=== PATIENT | female | born 2000 | race Two or more races ===

== ENCOUNTER → 2022-03-30 09:39 | Outpatient (BNVA) | payer MEDICARE, MEDICAID, SELFPAY | PROVIDERS: PCP Internal Medicine; Visit Provider Internal Medicine Rheumatology | DX: Q61.3 Polycystic kidney, unspecified (principal); M25.571 Pain in right ankle and joints of right foot; M25.572 Pain in left ankle and joints of left foot; M12.00 Chronic postrheumatic arthropathy [Jaccoud], unspecified site; Z87.39 Personal history of other diseases of the musculoskeletal system and connective tissue | CPT/HCPCS: 99202 ==

== ENCOUNTER 2025-02-03 08:09 | Outpatient (AMB) | payer MEDICARE, SELFPAY ==
--- OUTSIDE RECORDS SUMMARY | 2023-11-29 07:41 | XMS_ITS | Encounter Summary ---
Author Organization [facility] [place] [address] Care Team Providers Care Advertising Display Rotator Name Role Phone Lillian Johnson MD Primary Care Provider [phone] Encounter Details Date Type Department Care Team (Latest Contact Info) Description 11/29/2023 8:41 AM EDT Hospital Encounter TH HISTORIC ENCOUNTERS EASTERN CONVERSION ONLY [facility]i Pa, [facility] [address] [place] [address] Diaphragmatic hernia without obstruction or gangrene Social History Tobacco Use Types Packs/Day Years Used Date Smoking Tobacco: Never Smokeless Tobacco: Never Alcohol Use Standard Drinks/Week Comments Yes 0 (1 standard drink = 0.6 oz pur e alcohol) holiday only Housing Instability Answer Date Recorde d Are you worried that in the next 2 months you may not have stable housing? No 01/16/2025 Food Access & Nutrition Answer Date Rec orded Do you have access to a vari ety of food including fruits and vegetables? Yes 01/16/2025 Access to Healthcare Answer Date Record ed Within the last 3 months, ho w many times did you visit the emergency department for your medical care? 0 01/16/2025 Health Literacy Answer Date Recorded How often do you need to hav e someone help you when you read instructions, pamphlets, or other written material from your doctor or pharmacy? Never 01/16/2025 Caregiver: How often do you need to have someone help you when you read instructions, pamphlets, or other written material from your doctor or pharmacy? Not on file 01/16/2025 Financial Risk Answer Date Recorded How hard is it for you to pa y for the very basics like food, housing, medical care, and air conditioning / heating? Somewhat hard 01/16/2025 Transportation Answer Date Recorded Has the lack of transportati on kept you from meetings, work, or from getting things needed for daily living? Yes Has the lack of transportati on kept you from medical appointments or from getting medications? Yes 01/16/2025 Social Isolation Answer Date Recorded How often do you feel lonely or isolated from th ose around you? Always 01/16/2025 Food Risk Answer Date Recorded Within the past 12 months we worried whether our food would run out before we got money to buy more. Never true 01/16/2025 Within the past 12 months th e food we bought just didn't last and we didn't have money to get more. Never true 01/16/2025 Dependent Care Answer Date Recorded Do you need help finding or paying for care for your loved ones. For example, childcare center administrator or elderly care for an older adult? No 01/16/2025 Education Answer Date Recorded Do you think completing more education or training, like finishing a GED, going to college, or learning a trade, would be helpful for you? Yes 01/16/2025 Employment and Income Answer Date Recor ded During the last four weeks, have you been actively looking for work? No 01/16/2025 Living Situation Answer Date Recorded What is your living situation? Unrecognized valu e 01/16/2025 Education Answer Date Recorded What is the highest level of school you have completed or the highest degree you have received? 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 Not on file Not on file documented as of this encounter Plan of Treatment Upcoming Encounters Date Type Department Care Team (Late st Contact Info) Description 03/24/2025 3:00 PM EST Office Visit Adult Medicine [address] [phone] Graciela Caba PA [address], [place] 01/21/2026 3:00 PM EST Office Visit Adult Medicine [facility] [address], [place] [phone] Lillian Johnson MD [address], [place] documented as of this encounter Procedures Procedure Name Priority Date/Time Associated Diagnosis Comments CR UGI W AIR ROUTINE Routine 11/29/2023 11:10 AM EDT Diaphragmatic hernia without obstruction or gangrene documented in this encounter Results * CR UGI W AIR ROUTINE (11/29/2023 11:10 AM EDT) Anatomical Region Laterality Modality Radiographic Yesenia ging 11/29/2023 8:49 AM EDT Narrative 11/29/2023 11:10 AM EDT [facility] Diagnostic Imaging Department [address] [place] [address] [id number] Patient: ODILIA GILMORE T /Age/Sex: 2000 - 23 - F Unit#: [id number] Location/Status: SPDIGEN/REG CLI Mnemonic/Ordering Site: [facility] Ordering Physician: BRII PA APRN CR UGI W Air Routine - 11/29/23 - 0916 Report Status:Signed FINDINGS: Double contrast UGI performed. COMPARISON: CT abdomen and pelvis July 19, 2023 and March 19, 2020; barium swallow March 02, 2020 HISTORY: Patient is a 23-year-old female with history of GERD, generalized abdominal pain. Worse with lying flat. MANAGER SHOP radiographs: Shrimping Boat Captain AP radiograph of the abdomen obtained. Bowel gas pattern is nonobstructive. Visualized lung bases appear clear. There is moderate dextroscoliosis of the thoracolumbar spine, as seen on prior imaging. FINDINGS: Effervescent crystals were administered orally. Thick and thin barium was then administered orally under fluoroscopic control. Esophagus: Normal distensibility, motility and mucosal pattern. There is no evidence of obstruction. There is a small, sliding, axial hiatal hernia. Stomach: Normal distensibility and motility. Prompt passage of contrast from the stomach into the duodenal bulb and sweep. No gastric mass or ulceration. Visualization of proximal small bowel is within normal limits. Gastroesophageal reflux: There is a large amount of gastroesophageal reflux visualized to the level of the clavicles. DAP: 1966.0 uGym^2 Exam performed and dictated by: Marlen Wilburn PA-C Supervising physician: Cameron Travis MD IMPRESSION: Small, sliding, axial hiatal hernia with large amount of gastroesophageal reflux visualized. Otherwise normal double contrast upper GI exam. Dictating Physician: CAMERON TRAVIS MD Electronically Signed by: CAMERON TRAVIS MD Dic Date/Time: 11/29/23 1041 Sign date/Time: 11/29/23 1110 Procedure Note Cameron Travis MD - 12/12/2023 [facility] Diagnostic Imaging Department [address] [place] [id number] Patient: ODILIA GILMORE T /Age/Sex: 2000 - 23 - F Unit#: [id number] Location/Status: SPDIGEN/REG CLI Mnemonic/Ordering Site: [facility] Ordering Physician: BRII PA CONDENSER OPERATOR CR UGI W Air Routine - 11/29/23 - 0916 Report Status:Signed FINDINGS: Double contrast UGI performed. COMPARISON: CT abdomen and pelvis July 19, 2023 and March 19, 2020;barium swallow March 02, 2020 HISTORY: Patient is a 23-year-old female with history of GERD,generalized abdominal pain. Worse with lying flat. MANAGER SHOP radiographs: Shrimping Boat Captain AP radiograph of the abdomen obtained. Bowelgas pattern is nonobstructive. Visualized lung bases appear clear. There ismoderate dextroscoliosis of the thoracolumbar spine, as seen on prior imaging. FINDINGS: Effervescent crystals were administered orally. Thick and thinbarium was then administered orally under fluoroscopic control. Esophagus: Normal distensibility, motility and mucosal pattern. There isno evidence of obstruction. There is a small, sliding, axial hiatal hernia. Stomach: Normal distensibility and motility. Prompt passage of contrastfrom the stomach into the duodenal bulb and sweep. No gastric mass orulceration. Visualization of proximal small bowel is within normal limits. Gastroesophageal reflux: There is a large amount of gastroesophagealreflux visualized to the level of the clavicles. DAP: 1966.0 uGym^2 Exam performed and dictated by: Marlen Wilburn PA-C Supervising physician: Cameron Travis MD IMPRESSION: Small, sliding, axial hiatal hernia with large amount ofgastroesophageal reflux visualized. Otherwise normal double contrast upper GI exam. Dictating Physician: CAMERNO TRAVIS MD Electronically Signed by: CAMERON TRAVIS MD Dic Date/Time: 11/29/23 1041 Sign date/Time: 11/29/23 1110 us [facility]i Pa [facility] IMG XR PROCEDURES Final Result documented in this encounter Visit Diagnoses Diagnosis Diaphragmatic hernia without obstruction or gangrene Diaphragmatic hernia without mention of obstruction or gangrene documented in this encounter Care Teams Advertising Display Rotator Relationship Specialty Start Date End Date Lillian Johnson MD [address] [place] [address] PCP - General Internal Medicine 01/05/21 documented as of this encounter
--- OUTSIDE RECORDS SUMMARY | 2025-02-02 10:37 | XMS_ITS | Encounter Summary ---
Author Organization [facility] Address [address] [place] [address] Care Team Providers Care Machine Sorter Name Role Phone Lillian Johnson MD Primary Care Provider [phone] Reason for Visit * Reason Comments Knee Pain Past 3 weeks. Went t o UC said she has tendonitis. Pain has worsened. Now has bump to left leg above calf. Encounter Details Date Type Department Care Team (Late st Contact Info) Description 02/02/2025 10:37 AM EST - 02/02/2025 1:09 PM EST Emergency [facility] Emergency [address] [place] [address] Acute pain of right knee (Primary Dx); Swelling Discharge Disposition: Home or Self Care Social History Tobacco Use Types Packs/Day Years [...] do you feel lonely or isolated from ose around you? Always 01/16/2025 Food Risk [...] care for your loved ones. For example, child day care teacher or elderly care for an older adult? [...] Start Date Job End Date Par[employer]fess[employer] in [place] [employer] Not on f ile Not on file Not on file documented as of this encounter Last Filed Vital Signs Vital Sign Reading Time Taken Comments Blood Pressure 143/95 02/02/2025 10:32 AM EST Pulse 72 02/02/2025 10:32 AM EST Temperature 36.8 C (98.2 F) 02/02/2025 10:32 AM EST Respiratory Rate 18 02/02/2025 10:32 AM EST Oxygen Saturation 98% 02/02/2025 10:32 AM EST Inhaled Oxygen Concentration - - Weight 147 kg (323 lb) 02/02/2025 10:32 AM EST Height 167.6 cm (5' 6 ) 02/02/2025 10:32 AM EST Body Mass Index 52.13 02/02/2025 10:32 AM EST documented in this encounter Functional Status * Calculated C-SSRS Risk Score (Lifetime/Recent) Answer Date of Assessment Author No Risk Indicated 02/02/2025 10:32 AM EST Jojo King RN * [place] Suicide Severity Rating Scale (Screener/Recent Self-Report) Question Answer Date of Assessment Author 1. Wish to be (Past 1 Month) No 025 10:32 AM EST Jojo King RN 2. Non-Specific Active Suici lincoln Thoughts (Past 1 Month) No 02/02/2025 10:32 AM EST Bruna King RN 6. Suicidal Behavior (Lifetime) No 10:32 AM EST Jojo King RN documented as of this encounter Discharge Instructions * Discharge Instructions* KEIRY Weber - 02/02/2025 12:51 PM EST You were seen today for bilateral knee pain. Performed today did not reveal any evidence of an acute fracture or dislocation. DVT study evaluating for a clot was also negative. There were no signs ofinfection on exam. Your pain is most likely secondary to an underlying tendinitis. As we discussed you can use warm or cold compresses for additional relief. Continue to take Tylenol 650 mg every 8 hours as needed for pain. You also been prescribed lidocaine patches which you can apply to the affected area. I have given your information to Ortho and they will follow-up with you on a nonemergent follow-up. Follow-up with your PCP as needed. As we discussed if you have any signs of infection such as warmth to touch, overlying redness, fevers or chills, unable to move the joint increased swelling or pain please return to the ED. Thank you for choosing us for your care * Attachments The following attachments cannot be sent through Care Everywhere. * Knee Pain or Injury (Belarusian) documented in this encounter Medications at Time of Discharge acetaminophen (TYLENOL) 500 mg tablet Take 2 tablets (1,000 mg total) by mouth every 6 (six) hours if needed for mild pain for up to 10 days. 30 tablet 02/02/2025 5 albuterol HFA (PROAIR HFA ; PROVENTIL HFA ; VENTOLIN HFA) 90 mcg/actuation inhaler Inhale 2 puffs by mouth every 6 (six) hours if needed for wheezing or shortness of breath. 6.7 g 05/15/2024 cholecalciferol (VITAMIN D-3) 50 mcg (2,000 unit) tablet Take 1 Tablet by mouth daily. 10/21/2022 ferrous sulfate 325 mg (65 mg elemental iron) tablet Take 1 Tablet by mouth daily. 06/23/2023 fluticasone propionate (FLONASE) 50 mcg/actuation nasal spray Administer 2 sprays into each nostril 1 (one) time each day. 16 g 07/17/2024 hydrOXYzine HCL (ATARAX) 10 mg tablet Take 1 tablet (10 mg total) by mouth every 8 (eight) hours if needed for anxiety. 30 tablet 03/11/2024 levocetirizine (Xyzal) 5 mg tablet Take 1 tablet (5 mg total) by mouth 1 (one) time each day in the evening. 30 each 2 07/17/2024 lidocaine 4 % patch Apply 1 patch topically 1 (one) time each day for 5 days. 5 each 02/02/2025 5 omeprazole (PriLOSEC) [address] capsule Take 1 capsule (20 mg total) by mouth 1 (one) time each day. Do not crush or chew. 90 capsule 1 09/16/2024 traZODone (DESYREL) 50 mg tablet Take 1 tablet (50 mg total) by mouth at bedtime. at bedtime. 90 tablet 1 09/16/2024 documented as of this encounter Ordered Prescriptions Prescription Sig Dispense Quantity Refills Last Filled Start Date End Date acetaminophen (TYLENOL) 500 mg tablet Take 2 tablets (1,000 mg total) by mouth every 6 (six) hours if needed for mild pain for up to 10 days. 30 tablet 02/02/2025 5 lidocaine 4 % patch Apply 1 patch topically 1 (one) time each day for 5 days. 5 each 02/02/2025 5 documented in this encounter Discharge Disposition Disposition Code Departure Means Destination Comment s Home or Self Care documented in this encounter Progress Notes * Jojo King RN - 02/02/2025 10:26 AM EST Pt C/O right knee pain x 2-3 weeks, left leg swelling x 1 week. Pt states she was seen at last week and was dx with tendonitis and bursitis. Pt reports new onset right calf and foot swelling. Pt denies falls, injury/trauma. + CMS both lower extremities. Pt denies hx of DVT, stopped taking control pills 1 month ago * Arik Lorenz MD - 02/02/2025 10:26 AM EST Images from the original note were not included. [facility] EMERGENCY EMERGENCY DEPARTMENT ENCOUNTER CHIEF COMPLAINT Chief Complaint Patient presents with Knee Pain Past 3 weeks. Went to said she has tendonitis. Pain has worsened. Now has bump to left leg abovecalf. HISTORY OF PRESENT ILLNESS Patient is a 24-year-old female with history of elevated BMI, asthma, presenting with bilateral knee pain. Patient is been having pain of the right knee for the last 3 weeks and sees urgent care lastWednesday was diagnosed with a tendinitis and bursitis and prescribed Tylenol for pain control. Last week patient also began having pain to the left knee with a small mass behind the calf. Her PCP was concerned that she is developing a blood clot and sent her to the ER for further evaluation. Patient denies history of PE, DVT, recent immobilization or surgery, recent trauma. Patient denies chest pain, shortness of breath or palpitations. Patient is on OCP but has not taken it for at least a month. No known drug allergies. History of bilateral knee surgery. FOCUSED PHYSICAL EXAM Vitals: 02/02/25 1032 BP: (!) 143/95 BP Location: Left arm;Upper Patient Position: Sitting Pulse: 72 Resp: 18 Temp: 36.8 ??C (98.2 ??F) TempSrc: Oral SpO2: 98% Weight: 147 kg (323 lb) Height: 1.676 m (66 ) General: awake, alert, NAD Head: atraumatic Neck: supple Respiratory: no respiratory distress Cardiovascular: normal perfusion Extremity: Mild swelling noted to the right lower extremity otherwise, no obvious deformity. This is a limited exam and patient will be reexamined by primary ER provider when patient can be fully assessed. Neurological: no focal neurologic deficits Psychiatric: appropriate, cooperative Patient is able to ambulate with steady gait. DIAGNOSTIC TESTING Based on the patient's history and physical exam the following labs and radiology studies were ordered in order to evaluate, work-up and determine best course of treatment for the patient. The studies were ordered by me and will be interpreted by the provider who completes the patient's course: Labs Reviewed POC , URINE DIAGNOSTIC Vascular US Duplex Lower Extremity Venous Bilateral (Results Pending) XR Knee 3 Views bilat (Results Pending) No results found for this or any previous visit (from the past 4464 hours). Based on the above history and exam the following medications and/or treatments were ordered in order to start initial treatment and stabilization the patient's condition: Medications acetaminophen (TYLENOL) tablet 650 mg (has no administration in time range) The patient is condition and response to care provided will be followed closely and may be transitioned to another provider or continued by me. This is only an initial rapid medical evaluation. Arik Lorenz MD (electronically signed) 10:35 AM EST * KEIRY Weber - 02/02/2025 10:20 AM EST HPI Chief Complaint Patient presents with Knee Pain Past 3 weeks. Went to said she has tendonitis. Pain has worsened. Now has bump to left leg abovecalf. HPI Ms. Gilmore is a pleasant 24 year old female with history of ADPKD with preserved renal function, chronic headaches, adjustment disorder with depressed mood, elevated BMI presenting today for evaluation of bilateral knee pain. Patient states that she has been having right knee pain for the last 3 weeks, she was evaluated in urgent care last Monday and was diagnosed with both tendinitis and bursitis, she was prescribed Tylenol for pain control. She states that she cannot take ibuprofen secondary to autosomal dominant polycystic kidney disease, she follows nephrology for this. Admission just last week patient states that she started having pain to the left knee and noticed asmall mass behind her calf. She contacted her PCP who voiced concern for potential blood clot and urged her to go to the ER for further evaluation. Patient denies any history of pulmonary embolism, DVT, recent immobilization, surgery, recent trauma or injury, prolonged travel, malignancy, hemoptysis. Patient does admit that she was previously taking oral contraceptives, was very intermittent and she has not taken it for the last month. She does have a history of bilateral knee surgery with hardware secondary to angelo disease. No data recorded Patient History Medical History[1] Surgical History[2] Family History[3] Social History Tobacco Use Smoking status: Never Smokeless tobacco: Never Substance Use Topics Alcohol use: Yes Comment: holiday only Drug use: Yes Types: Marijuana/Cannabis Comment: edibles Review of Systems Review of Systems Physical Exam ED Triage Vitals [02/02/25 1032] Temp Heart Rate Resp BP 36.8 ??C (98.2 ??F) 72 18 (!) 143/95 SpO2 Temp Source Heart Rate Source Patient Position 98 % Oral -- Sitting BP Location FiO2 (%) Left arm;Upper -- Physical Exam General Appearance: No acute distress Skin: Dry Eyes: EOMI, no scleral icterus HENT: Normocephalic, atraumatic, moist mucous membranes Neck: Supple, normal range of motion Cardiovascular: Regular rate and rhythm, no murmur, 2+ radial pulses Respiratory: Lungs clear to auscultation bilaterally, no respiratory distress, no wheezing or rhonchi Abdomen: Soft, non-tender, non-distended MSK: - RLE: Tenderness with palpation over the right superior lateral patellar, overlying bony prominence of distal femur. No overlying skin changes. Compartments are soft and compressible, no palpable effusion or fluid. 2+ popliteal pulse. No swelling. Full range of motion nonpainful. There is no distinct swelling. No overlying skin changes such as cellulitis or erythema. No warmth to touch. Range ofmotion is nonpainful. 2+ DP, 1+ TP pulse. No signs of neurovascular compromise. Brisk capillary refill - LLE: Compartments are soft and compressible, no palpable effusion or fluid. 2+ popliteal pulse. Patient has tenderness with palpation of left superior medial calf region. There is a mild swelling, difficult to discern secondary to body habitus. However there are no overlying skin changes such as cellulitis or erythema. No warmth to touch. Range of motion is nonpainful. 2+ DP, 1+ DP pulse. No signs of neurovascular compromise. Brisk capillary refill Neurologic: Awake, alert, no obvious deficits, moving all extremities Psychiatric: Appropriate, cooperative ED Course & MDM ED Course as of 02/02/25 1251 Sun Feb 02, 2025 1139 Vascular US Duplex Lower Extremity Venous Bilateral No deep venous thrombosis of either lower extremity. [SO] 1238 Vascular US Duplex Lower Extremity Venous Bilateral [SO] ED Course User Index [SO] KEIRY Weber Clinical Impressions as of 02/02/25 1251 Swelling Acute pain of right knee Medical Decision Making Ms. Gilmore is a pleasant 24 year old female with history of ADPKD with preserved renal function, chronic headaches, adjustment disorder with depressed mood, elevated BMI presenting today for evaluation of bilateral knee pain. Physical exam she is in no acute distress nontoxic-appearing, independently ambulatory with steady gait. Independent interpretation of vital signs is hemodynamically stable. Medicated with acetaminophen at 1000 mg, held off on ibuprofen as she states that she was urged not to use this by her family counselor. Prior to my initial evaluation patient had bilateral vascular ultrasound for DVT as well as bilateral knee x-ray. Ultrasound negative for DVT bilaterally. Patient did not have any shortness of breath, chest pain, palpitations concerning for PE. There are no signs of acute limb ischemia or neurovascular compromise in the bilateral lower extremities. Consulted Ortho, spoke with Dr. Duron no emergent intervention at this time, patient can be evaluated non emergently in outpatient setting. I suspect her pain is likely secondary to tendinitis. Low clinical suspicion for septic arthritis given no signs of infection, no fevers or chills, no overlying erythema or warmth, no swelling, no difficulty in range of motion, no immunosuppression. Patient treated symptomatically with acetaminophen, instructed not to use ibuprofen secondary to her polycystic kidney disease and recommendations ofnephrology. She was also given lidocaine patches for additional relief. Patient deemed appropriate for discharge with symptomatic treatment, recommendations to follow-up with PCP and ortho with strict return precautions provided. Patient verbalizes understanding and agreement with plan. Procedures KEIRY Weber 02/02/25 1219 KEIRY Weber 02/02/25 1257 KEIRY Weber 02/02/25 1727 [1] Past Medical History: Diagnosis Date Adjustment disorder with depressed mood 2018 Asthma 2018 History of Helicobacter pylori infection 2018 Iron deficiency anemia 03/12/2018 JRA (juvenile rheumatoid arthritis) ([facility] V24, [facility] V28) 03/12/2018 Morbid obesity with BMI of 50.0-59.9, adult ([facility] V24, [facility] V28) 03/12/2018 SONALI (obstructive sleep apnea) 2018 Seasonal allergies 2018 Vitamin D deficiency 2018 [2] Past Surgical History: Procedure Laterality Date ADENOIDECTOMY KNEE SURGERY Bilateral 02/21/2012 : growth plates placed in knees bilateral OTHER SURGICAL HISTORY 07/2023 hysteroscopy w/ D&C, path benign [3] Family History Problem Relation Name Age of Onset Diabetes Mother stroke, HTN, CHF, asthma, SONALI Other (Other: Other) Father polycystic kidney disease w/ kidney failure Ovarian cancer Maternal Grandmother Prostate cancer Maternal Grandfather diabetes Other (unknown cancer) Paternal Grandmother Diabetes Half-Brother x 5 schizophrenia Other (Other: Shot) Half-Brother x 1 36 Other (Other: Mental illness) Half-Sister x 1 KEIRY Weber 02/02/25 1908 Cosigned by Talon Muhammad MD at 02/03/2025 1:01 AM EST documented in this encounter Plan of Treatment Upcoming Encounters Date Type Department Care Team (Late st Contact Info) Description 03/24/2025 3:00 PM EST Office Visit Adult Medicine [facility] [address] [place] [address] Graciela Caba PA [address], [place] 01/21/2026 3:00 PM EST Office Visit Adult [address] [phone] Lillian Johnson MD [address], [place] documented as of this encounter Procedures Procedure Name Priority Date/Time Associated Diagnosis Comments XR KNEE 4+ VIEWS BILAT STAT 02/02/2025 11:55 AM EST VAS US DUPLEX LOWER EXT VENOUS BILAT STAT 02/02/2025 11:31 AM EST Swelling documented in this encounter Results * XR Knee 4+ Views bilat (02/02/2025 11:55 AM EST) Anatomical Region Laterality Modality Lower Extremities, Knee Bilateral Radiogra phic Imaging 02/02/2025 12:1 8 PM EST Impressions 02/02/2025 12:22 PM EST No acute findings. Sideplates and fixation screws along the medial distal left femur and proximal left tibia. Sideplate and fixation screws along the distal lateral right femur and lateral proximal right tibia. The right femoral sideplate is not flush with the adjacent cortex. -------- FINAL REPORT -------- Dictated By: Heath Shen Dictated Date: 02/02/2025 12:18 ET Assigned Physician: Heath Shen Reviewed and Electronically Signed By: Heath Shen Signed Date: 02/02/2025 12:22 ET Workstation ID: [id number] Transcribed By: Self Edit Transcribed Date: 02/02/2025 12:18 ET Narrative 02/02/2025 12:22 PM EST PROCEDURE: Radiographs of both knees. HISTORY: Atraumatic pain. COMPARISON: 01/22/2025. FINDINGS: Multiple views of both knees. Bony mineralization is normal. Left knee: Sideplate and fixation screws along the medial distal femur and medial proximal tibia. No apparent hardware complication. No joint effusion. No fracture. Right knee: Sideplate and fixation screws along the lateral distal femur and lateral proximal tibia. The proximal portion of the femoral sideplate is not flush with the adjacent cortex, with an approximately 4 mm gap. Hardware appears intact. No joint effusion. Procedure Note Heath Shen MD - 02/02/2025 PROCEDURE: Radiographs of both knees. HISTORY: Atraumatic pain. COMPARISON: 01/22/2025. FINDINGS: Multiple views of both knees. Bony mineralization is normal. Left knee: Sideplate and fixation screws along the medial distal femur andmedial proximal tibia. No apparent hardware complication. No jointeffusion. No fracture. Right knee: Sideplate and fixation screws along the lateral distal femurand lateral proximal tibia. The proximal portion of the femoral sideplateis not flush with the adjacent cortex, with an approximately 4 mm gap.Hardware appears intact. No joint effusion. IMPRESSION: No acute findings. Sideplates and fixation screws along the medial distal left femur andproximal left tibia. Sideplate and fixation screws along the distallateral right femur and lateral proximal right tibia. The right femoralsideplate is not flush with the adjacent cortex. -------- FINAL REPORT -------- Dictated By: Heath Shen Dictated Date: 02/02/2025 12:18 ET Assigned Physician: Heath Shen Reviewed and Electronically Signed By: Heath Shen Signed Date: 02/02/2025 12:22 ET Workstation ID: [id number] Transcribed By: Self Edit Transcribed Date: 02/02/2025 12:18 ET us Arik Lorenz MD IMG XR PROCEDURES Final Result * Vascular US Duplex Lower Extremity Venous Bilateral (02/02/2025 11:31 AM EST) Anatomical Region Laterality Modality Vascular, Abdomen Ultrasound 02/02/2025 11:3 3 AM EST Impressions 02/02/2025 11:34 AM EST No deep venous thrombosis of either lower extremity. -------- FINAL REPORT -------- Dictated By: Heath Shen Dictated Date: 02/02/2025 11:33 ET Assigned Physician: Heath Shen Reviewed and Electronically Signed By: Heath Shen Signed Date: 02/02/2025 11:34 ET Workstation ID: [id number] Transcribed By: Self Edit Transcribed Date: 02/02/2025 11:33 ET Narrative 02/02/2025 11:34 AM EST PROCEDURE: Bilateral lower extremity venous duplex ultrasound. HISTORY: edema pain in extremities. COMPARISON: None. TECHNIQUE: Grayscale, color Doppler, and spectral Doppler ultrasound evaluation of the deep venous structures of the lower extremities. Augmentation and compression maneuvers were performed. FINDINGS: The deep venous structures of the lower extremities demonstrate normal compressibility with normal color and spectral Doppler flow and a normal response to augmentation maneuvers. No sonographic abnormality in the posterior upper left calf at site of reported pain. Procedure Note Heath Shen MD - 02/02/2025 PROCEDURE: Bilateral lower extremity venous duplex ultrasound. HISTORY: edema pain in extremities. COMPARISON: None. TECHNIQUE: Grayscale, color Doppler, and spectral Doppler ultrasoundevaluation of the deep venous structures of the lower extremities.Augmentation and compression maneuvers were performed. FINDINGS: The deep venous structures of the lower extremities demonstrate normalcompressibility with normal color and spectral Doppler flow and a normalresponse to augmentation maneuvers. No sonographic abnormality in the posterior upper left calf at site ofreported pain. IMPRESSION: No deep venous thrombosis of either lower extremity. -------- FINAL REPORT -------- Dictated By: Heath Shen Dictated Date: 02/02/2025 11:33 ET Assigned Physician: Heath Shen Reviewed and Electronically Signed By: Heath Shen Signed Date: 02/02/2025 11:34 ET Workstation ID: [id number] Transcribed By: Self Edit Transcribed Date: 02/02/2025 11:33 ET us Arik Lorenz MD CV VASCULAR PROCEDURES Final Res ult documented in this encounter Visit Diagnoses Diagnosis Acute pain of right knee- Primary Swelling Localized superficial swelling, mass, or lump documented in this encounter Administered Medications Inactive Administered Medications - up to 3 most recent administrations Medication Order MAR Action Action Date Dose Rate Site acetaminophen (TYLENOL) tablet 1,000 mg 1,000 mg, oral, Once, On 02/02/25 at 1055, For 1 dose Given 02/02/2025 11:01 AM EST 1,000 mg lidocaine 4 % patch 1 patch 1 patch, Topical, Administer over 12 Hours, Once, On 02/02/25 at 1253, For 1 dose, Apply to right knee. Patch Applied 02/02/2025 1:01 PM EST 1 patch Other documented in this encounter Active and Recently Administered Medications Times are shown in EST. Scheduled Medication Order 01/31/2025 02/01/2025 02/02/2025 acetaminophen (TYLENOL) tablet 1,000 mg (COMPLETED) 1,000 mg, oral, Once, On 02/02/25 at 1055, For 1 dose 1101 (Given - Provid er: Juli Buenrostro RN) lidocaine 4 % patch 1 patch 1 patch, Topical, Administer over 12 Hours, Once, On 02/02/25 at 1253, For 1 dose, Apply to right knee. 1301 (Patch Applied - Provider: Juli Buenrostro RN - Comment: knee)1309 (Due: Patch Removed - Provider: Automatic Discharge Provider - Comment: Time automatically adjusted from order being discontinued) documented in this encounter Orders Medications Ordered That Domenico ht Not Have Been Administered Count Last Ordered Date First Ordered Date acetaminophen (TYLENOL) tablet 650 mg 1 documented in this encounter Additional Health Concerns Assessment Noted Time PHQ-9 Depression Total Score: 10 025 3:55 PM EST A fall risk assessment has been complete d for the patient 01/16/2025 3:51 PM EST documented as of this encounter Care Teams Machine Sorter Relationship Specialty Start Date End Date Lillian Johnson MD [address] [place] [id number] PCP - General Internal Medicine 01/05/21 documented as of this encounter
--- OUTSIDE RECORDS SUMMARY | 2025-02-03 08:16 | XMS_ITS | Clinical Summary ---
Author Organization [facility] Address [address] [place] [phone] Phone Care Team Providers Care Chemical Sales Representative Name Role Phone Lillian Johnson MD Primary Care Provider [phone] Allergies Active Allergy Reactions Criticality Noted Date Comments Other 11/01/2022 Medications ferrous sulfate 325 (65 Fe) MG tablet Take 1 tablet by mouth 1 (one) time each day 05/20/2013 Active omeprazole (PriLOSEC) [address] capsule Take 20 mg by mouth 05/12/2023 Active traZODone (DESYREL) 50 MG tablet Take 1 tablet by mouth at bed time 03/18/2022 Active hydrOXYzine (ATARAX) 10 MG tablet Take 10 mg by mouth 03/18/2022 Active cholecalciferol (VITAMIN D-3 SUPER STRENGTH) 50 MCG (1999) tablet Take 1 tablet by mouth 1 (one) time each day 10/21/2022 Active medroxyPROGESTER one (PROVERA) 10 MG tablet Take 20 mg by mouth 1 (one) time each day Active Active Problems Problem Noted Date Diagnosed Date Headache 06/19/2024 Autosomal dominant polycystic kidney disease 05/2023 Arthritis 08/04/2023 Autosomal dominant polycystic kidney disease Abdominal pain 08/03/2023 Obesity 08/03/2023 Chronic iron deficiency anemia secondary to bloo d loss 04/05/2022 COVID-19 03/02/2022 Insomnia 01/05/2021 Anxiety 01/05/2021 Renal stone 03/02/2020 Overview (08/04/2023): Noticed incidentally on ultrasound of the abdomen. 4.1 x 4.[address] scan was recommended ordered by gastroenterology. Multiple renal cysts 05/01/2018 Overview (08/04/2023): Dr. Seth Menometrorrhagia 05/01/2018 Gastroesophageal reflux disease 05/01/2018 Overview (08/04/2023): Patient had upper endoscopy done with Dr. 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 Iron deficiency anemia 03/12/2018 Immunizations Immunization Administration Dates Next Due DTaP 05/10/2004, 1,06/13/2000,10/02,1999,1999,1999 ,1999,1999 DTaP / HiB / IPV 07/02/2000, 1,1999,09/12,1999,1999,1999 HPV, Quadrivalent 09/28/2015,06/24/2014 HPV, Unspecified 09/28/2015 Hep A, 2 Dose 11/14/2017 Hep B, Adolescent or Pediatric 0,1999,1999,06/12,1999,1999 Hepatitis A 11/14/2017 HiB 07/02/2000, 0,1999,06/02 IPV 05/10/2004, 1,1999,07/13,1999,1999 Influenza, Injectable, Madin [place] Canine Kidney, Preservative Free 03/11/2024 Influenza, MDCK, PF, Quadrivalent 10/19/2022,04/2022 MMR 05/10/2004,04/10/2000 Meningococcal C Conjugate 09/28/2015 Meningococcal MCV4P 09/28/2015,05/16/2011 Pneumococcal Conjugate 07/02/2000,06/12/2000, Tdap 07/29/2021,05/16/2011 Varicella 01/20/2009,04/10/2000 Social History Tobacco Use Types Packs/Day Years Used Date Smoking Tobacco: Never Assessed Comments Unknown Sex and Gender Information Value Date Recorded Sex Assigned at Not on file Legal Sex Female 11:33 AM EDT Gender Identity Not on file Sexual Orientation Not on file Last Filed Vital Signs Vital Sign Reading Time Taken Comments Blood Pressure 126/80 09/24/2024 4:00 PM EDT Pulse 88 09/24/2024 4:00 PM EDT Temperature - - Respiratory Rate - - Oxygen Saturation 98% 09/24/2024 4:00 PM EDT Inhaled Oxygen Concentration - - Weight 148 kg (326 lb 3.2 oz) 09/24/2024 4:00 PM EDT Height - - Body Mass Index - - Plan of Treatment Upcoming Encounters Date Type Department Care Team (Late st Contact Info) Description 03/25/2025 11:00 AM EST Office Visit [facility] [address] [phone] Mary Burger ARNP [address] [phone] Health Maintenance Due Date Last Done Comments Pneumococcal Vaccine: Peds ( 0 to 5 Years) and At-Risk Patients (6 to 49 Years) (1 of 2 - PCV) 2018 07/02/2000, 06/12/2000, 04/10/2000 Influenza Vaccine (#1) 2024 , 10/19/2022, 03/18/2022 Hepatitis B Vaccine Completed 1999, 1999, 1999, Additional history exists Insurance ([id number]) [facility] ([id number]) Care Teams Chemical Sales Representative Relationship Specialty Start Date End Date Lillian Johnson MD [address] [place] [phone] PCP - General Internal Medicine 08/04/23
--- OUTSIDE RECORDS SUMMARY | 2025-02-03 08:16 | XMS_ITS | Clinical Summary ---
Author Organization [facility] Prior to 07/13/24 Address [address] [place] [address] Care Team Providers Care Business Services Assistant Name Role Phone Lillian Johnson MD Primary Care Provider Allergies Active Allergy Reactions Criticality Noted Date Comments Seasonal 11/01/2022 Medications Medication Sig Dispensed Refills Start Date End Date Status traZODone (DESYREL) 50 MG tablet Take 1 tablet (50 mg total) by mouth every night at bedtime. 0 03/18/2022 Active hydrOXYzine (ATARAX) 10 MG tablet Take 1 tablet (10 mg total) by mouth daily as needed. for anxiety 0 03/18/2022 Active albuterol 108 (90 Base) MCG/ACT inhaler Inhale 2 puffs into the lungs. 0 03/02/2022 Active norethindrone-ethinyl estradiol (MICROGESTIN 03/04) 1-20 MG-MCG per tablet TAKE 1 TABLET BY MOUTH DAILY THEN DO NOT TAKE A PILL FOR A WEEK 0 11/15/2022 Active Active Problems Problem Noted Date Diagnosed Date Iron deficiency anemia due to chronic blood loss 04/05/2022 Social History Tobacco Use Types Packs/Day Years Used Date Smoking Tobacco: Never Smokeless Tobacco: Never Tobacco Cessation:Counseling Given: Not Answered Alcohol Use Standard Drinks/Week Comments Yes 0 (1 standard drink = 0.6 oz pur e alcohol) maybe 1 per year Sex and Gender Information Value Date Recorded Sex Assigned at Female 04/15/2022 12:18 PM EST Gender Identity Not on file Sexual Orientation Not on file Job Start Date Occupation Industry Not on file Not on file Not on file Last Filed Vital Signs Vital Sign Reading Time Taken Comments Blood Pressure 136/78 11/25/2022 2:00 PM EDT Pulse 79 11/25/2022 2:00 PM EDT Temperature 36.2 C (97.2 F) 11/25/2022 2:00 PM EDT Respiratory Rate 16 11/25/2022 3:00 PM EDT Oxygen Saturation 100% 11/21/2022 1:56 PM EDT Inhaled Oxygen Concentration - - Weight 141.4 kg (311 lb 12.8 oz) 11/01/2022 3:59 PM EDT Height 167.6 cm (5' 6 ) 11/01/2022 3:59 PM EDT Body Mass Index 50.33 11/01/2022 3:59 PM EDT Plan of Treatment Health Maintenance Due Date Last Done Comments Hepatitis C Screening 1999 COVID-19 Vaccine (#1) 1999 Depression Screening 2011 Gonorrhea and Chlamydia Screening 2012 BMI Counseling 2017 Preventative Health Evaluation 2017 Cervical Cancer Screening (Pap Smear) 2020 Influenza Vaccine (#1) 2024 10/19/2022, 2022 DTap / Tdap / Td (8 - Td or Tdap) 07/30/2031 07/29/2021, 05/16/2011, 05/10/2004, Additional history exists Hepatitis B Vaccines Completed 1999, 1999, 1999 Pneumococcal Vaccine Completed 07/02/2000, 06/12/2000, 04/10/2000 RSV Ped < 20 months Aged Out No longe r eligible based on patient's age to complete this topic Care Teams Business Services Assistant Relationship Specialty Start Date End Date Lillian Johnson MD PCP - General Internal Medicine 04/04/22
--- OUTSIDE RECORDS SUMMARY | 2025-02-03 08:16 | XMS_ITS | Clinical Summary ---
Author Organization [facility] [place] [address] Phone Care Team Providers Care Deflash And Wash Operator Name Role Phone Lillian Johnson MD Primary Care Provider [phone] Allergies Active Allergy Reactions Criticality Noted Date Comments Other 05/12/2023 Seasonal allergies Medications norethindrone-e thinyl estradiol (JUNEL FE 03/04) 1 mg-20 mcg (21)/75 mg (7) per tablet Take 1 Tablet by mouth daily for 360 days. 4 Active ferrous sulfate 325 mg (65 mg elemental iron) tablet Take 1 Tablet by mouth daily. 4 Active cholecalciferol (VITAMIN D-3) 50 mcg (2,000 unit) tablet Take 1 Tablet by mouth daily. 3 Active hydrOXYzine HCL (ATARAX) 10 mg tablet Take 1 tablet (10 mg total) by mouth every 8 (eight) hours if needed for anxiety. 30 tablet 5 Active albuterol HFA (PROAIR HFA ; PROVENTIL HFA ; VENTOLIN HFA) 90 mcg/actuation inhaler Inhale 2 puffs by mouth every 6 (six) hours if needed for wheezing or shortness of breath. 6.7 g 5 Active levocetirizine (Xyzal) 5 mg tablet Take 1 tablet (5 mg total) by mouth 1 (one) time each day in the evening. 30 each 2 5 Active fluticasone propionate (FLONASE) 50 mcg/actuation nasal spray Administer 2 sprays into each nostril 1 (one) time each day. 16 g 5 Active omeprazole (PriLOSEC) [address] capsule Take 1 capsule (20 mg total) by mouth 1 (one) time each day. Do not crush or chew. 90 capsule 1 5 Active traZODone (DESYREL) 50 mg tablet Take 1 tablet (50 mg total) by mouth at bedtime. at bedtime. 90 tablet 1 5 Active lidocaine 4 % patch Apply 1 patch topically 1 (one) time each day for 5 days. 5 each 5 02/08/20 25 Active acetaminophen (TYLENOL) 500 mg tablet Take 2 tablets (1,000 mg total) by mouth every 6 (six) hours if needed for mild pain for up to 10 days. 30 tablet 5 02/13/20 25 Active diclofenac (VOLTAREN) 1 % topical gel Apply 1 g topically 3 (three) times a day for 10 days. 30 g 5 02/02/20 25 Active Problems Problem Noted Date Diagnosed Date Morbid obesity with BMI of 50.0-59.9, adult 04/2023 History of COVID-19 03/02/2022 Anxiety 01/05/2021 Insomnia 01/05/2021 Renal lesion 03/02/2020 Overview (01/16/2024): Noticed incidentally on ultrasound of the abdomen. 4.1 x 4.[address] scan was recommended ordered by gastroenterology. Gastroesophageal reflux disease 05/01/2018 Overview (01/16/2024): Patient had upper endoscopy done with Dr. Olmstead December 2019 no acute disease Normal barium swallow February 2020 Polycystic kidney disease 05/01/2018 Overview (01/16/2024): Dr. Seth Adjustment disorder with depressed mood 03/30/19 Asthma 2018 SONALI (obstructive sleep apnea) 2018 Seasonal allergies 2018 Vitamin D deficiency 2018 Iron deficiency anemia 03/12/2018 JRA (juvenile rheumatoid arthritis) 03/12/2018 Overview (01/16/2024): HLA-B27 positive arthritis, following with [facility] previously on methotrexate and Humira. Resolved Problems Problem Noted Date Diagnosed Date Resolved Date Arthritis 08/04/2023 01/16/2025 Autosomal dominant polycystic kidney disease 4 09/16/2024 Abdominal pain 08/03/2023 09/11/2024 Menorrhagia with irregular cycle 05/01/2018 09/11/2024 Encounters Date Type Department Care Team Description 02/02/2025 10:37 AM EST - 02/02/2025 1:[address] [facility] [address] [place] [address] Acute pain of right knee (Primary Dx); Swelling Discharge Disposition: Home or Self Care 01/22/2025 5:00 PM EST - 01/22/2025 11:59 PM EST Hospital Encounter Xray - [address] [phone] Acute pain of right knee Discharge Disposition: Home or Self Care 01/22/2025 4:15 PM EST Office Visit Walk-In Clinic - [address] [phone] Ricardo Reyna PA Tendonitis of knee, right (Primary Dx); Semimembranosus bursitis of right knee 01/22/2025 Nurse Triage Adult Medicine [address] [phone] Lillian Johnson MD 01/16/2025 4:00 PM EST Office Visit Adult [address] [phone] Tammy Santos PA Encounter for annual wellness visit (AWV) in Medicare patient (Primary Dx); Annual physical exam; SONALI (obstructive sleep apnea); Vitamin D deficiency; Lipid screening; Need for hepatitis C screening test; Chronic pain of right knee 12/16/2024 Telephone Adult Medicine South - [address] [phone] Lillian Johnson MD from Last 3 Months Immunizations Immunization Administration Dates Next Due DTaP (Infanrix) 6wks to less than 7yo ,07/02/2000,06/13/2000,10/02,1999,1999,1999 ,1999,1999 [id number] (Pentacel) 2mo to less than 5yo 07/02/2000,06/12/2000,1999,09/12,1999,1999,1999 HPV, Quadrivalent 09/28/2015,06/24/2014 HPV, Unspecified 09/28/2015 Hepatitis A Adult (Havrix; V aqta) 19yo and older 11/14/2017 Hepatitis A Pediatric (Havri x; Vaqta) 12mo to less than 19yo 11/14/2017 Hepatitis B Pediatric (Enger ix B; Recombivax HB) to less than 20 yo 1999,1999,1999,06/12,1999,1999 HiB 07/02/2000, 0,1999,06/02 IPV Inactivated polio (Ipol) 6wks and older 05/10/2004,04/10/2000,1999,07/13,1999,1999 Influenza Quadravalent, MDCK , 0.5ml, preservative free (Flucelvax) 6mo and older 10/19/2022,03/18/2022 Influenza trivalent, MDCK, 0 .5mL, preservative free (Flucelvax) 6mo and older 01/16/2025,03/11/2024 MMR, measles mumps and rubel la Live (Priorix; M-M-R II) 12mo and older 05/10/2004,04/10/2000 Meningococcal C Conjugate 09/28/2015 Meningococcal MCV4P 09/28/2015,05/16/2011 Pneumococcal Conjugate Vacci ne, 7 Valent 07/02/2000,06/12/2000,04/10/2000 Pneumococcal conjugate 20 va lent (Prevnar 20, PCV 20) 2mo and older 01/16/2025 Tdap Tetanus diptheria acell ular pertussis (Boostrix; Adacel) 7yo and older 07/29/2021,05/16/2011 Varicella live (Varivax) 12m o and older 01/20/2009,04/10/2000 Surgical History Surgery Date Site/Laterality Comments KNEE SURGERY 02/21/2012 Bilateral : growth plates placed in knees bilateral ADENOIDECTOMY OTHER SURGICAL HISTORY 07/15/2023 - 08/13/2023 hysteroscopy w/ D&C, path benign Medical History Medical History Date Comments Iron deficiency anemia 03/12/2018 JRA (juvenile rheumatoid arthritis) ([facility] [place]24 , [facility] V28) 03/12/2018 Asthma 2018 Morbid obesity with BMI of 5 0.0-59.9, adult ([facility] V24, [facility] V28) 03/12/2018 SONALI (obstructive sleep apnea) 2018 History of Helicobacter pylori infection 03/30/19 19 Seasonal allergies 2018 Adjustment disorder with depressed mood 9 Vitamin D deficiency 2018 Family History Medical History Relation Name Comments Other: Other Father polycystic kidn ey disease w/ kidney failure Diabetes Half-Brother 1 x 5 schizophrenia Other: Shot Half-Brother 2 x 1 Other: Mental illness Half-Sister x 1 Prostate cancer Maternal Grandfather diab etes Ovarian cancer Maternal Grandmother Diabetes Mother stroke, HTN, CH F, asthma, SONALI unknown cancer Paternal Grandmother Relation Name Status Comments Father Half-Brother 1 x 5 Alive Half-Brother 2 x 1 Half-Sister x 1 Alive Maternal Grandfather Maternal Grandmother Mother Alive Paternal Grandfather Paternal Grandmother Social History Tobacco Use Types Packs/Day Years [...] care for your loved ones. For example, director maternal child or elderly care for an older adult? 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 on file Not on file Obstetrics History Para Term AB IAB SAB Ectopic Multiple Livin g Live Births 0 0 0 0 0 0 0 0 Last Filed Vital Signs Vital Sign Reading [...] Mass Index 52.13 02/02/2025 10:32 AM EST Plan of Treatment Upcoming Encounters Date Type Department Care Team (Late st Contact Info) Description 03/24/2025 3:00 PM EST Office Visit Adult Medicine [address] [phone] Graciela Caba PA [address] [place] [address] 01/21/2026 3:00 PM EST Office Visit Adult Medicine [address] [phone] Lillian Johnson MD [address] [place] [address] Health Maintenance Due Date Last Done Comments HPV Vaccines (3 - 3-dose series) 12/21/2015 09/28/2015, 09/28/2015, 06/24/2014 Hepatitis A Vaccines (2 of 2 - 2-dose series) 05/15/2018 11/14/2017, 11/14/2017 HIV Screening 01/12/2022 Hepatitis C Screening 01/12/2022 COVID-19 Vaccine ( season) 2024 Cervical Cancer Screening: Pap Smear 05/26/2025 05/26/2022, 05/26/2022 Medicare Annual Wellness Visit 01/16/2026 01/16/2025 Social Influencers of Health Screening 01/16/2026 01/16/2025 Cholesterol Screening (Lipid Panel) 05/25/2028 05/26/2023 DTaP,Tdap,and Td Vaccines (8 - Td or Tdap) 07/30/2031 07/29/2021, 05/16/2011, 05/10/2004, Additional history exists RSV Immunization Adult Patients (1 - 1-dose 75+ series) 2074 Hepatitis B Vaccines Completed 1999, 1999, 1999, Additional history exists HIB Vaccines Completed 07/02/2000, 06/14, 06/12/2000, Additional history exists IPV Vaccines Completed 05/10/2004, 06/14, 06/12/2000, Additional history exists MMR Vaccines Completed 05/10/2004, 04/10/2000 Varicella Vaccines Completed 01/20/2009, 04/10/2000 Meningococcal ACWY Vaccine Completed 09/27, 09/28/2015, 05/16/2011 Gonorrhea/Chlamydia Screening Discontinued 03/26/2024 Depression Screening Completed 01/16/2025, 05/12/19 24 Influenza Vaccine Completed 01/16/2025, , 10/19/2022, Additional history exists Pneumococcal Vaccine: Pediatrics (0 to 5 Years) and At-Risk Patients (6 to 49 Years) Completed 01/16/2025, 07/02/2000, 06/12/2000, Additional history exists Meningococcal B Vaccine Aged Out No l onger eligible based on patient's age to complete this topic RSV Immunization Patients Under 20 months Aged Out No longer eligible based on patient's age to complete this topic Procedures Procedure Name Priority Date/Time Associated Diagnosis Comments XR KNEE 4+ VIEWS BILAT STAT 02/02/2025 11:55 AM EST VAS US DUPLEX LOWER EXT VENOUS BILAT STAT 02/02/2025 11:31 AM EST Swelling XR KNEE 4+ VIEWS RIGHT STAT 01/22/2025 5:13 PM EST Acute pain of right knee CHLAMYDIA TRACHOMATIS AND NEISSERIA GONORRHOEAE PCR Routine 03/26/2024 3:24 PM EST Encounter for well woman exam with routine gynecological exam Screen for STD (sexually transmitted disease) LIPID PANEL Routine 05/26/2023 HM DEPRESSION SCREENING Routine 05/12/2023 PAP SMEAR Routine 05/26/2022 from Last 3 Months or Most Recently Relevant to Health Maintenance Results * XR Knee 4+ Views bilat (02/02/2025 11:55 AM EST) Anatomical Region Laterality Modality Lower Extremities, Knee Bilateral [facility] 02/02/2025 12:1 8 PM EST Impressions [...] Signed Date: 02/02/2025 12:22 ET Workstation ID: [id number] Transcribed By: Self Edit Transcribed Date: 02/02/2025 [...] Signed Date: 02/02/2025 12:22 ET Workstation ID: [id number] Transcribed By: Self Edit Transcribed Date: 02/02/2025 [...] Signed Date: 02/02/2025 11:34 ET Workstation ID: [id number] Transcribed By: Self Edit Transcribed Date: 02/02/2025 [...] Signed Date: 02/02/2025 11:34 ET Workstation ID: [id number] Transcribed By: Self Edit Transcribed Date: 02/02/2025 11:33 ET us Arik Lorenz MD CV VASCULAR PROCEDURES Final Res ult * XR Knee 4+ Views Right (01/22/2025 5:13 PM EST) Anatomical Region Laterality Modality Lower Extremities, Knee Right Radiogra phic Imaging 01/23/2025 10:0 9 AM EST Impressions 01/23/2025 10:13 AM EST No acute fracture or dislocation of the right knee. -------- FINAL REPORT -------- Dictated By: Jay Obrien Dictated Date: 01/23/2025 10:09 ET Assigned Physician: Jay Obrien Reviewed and Electronically Signed By: Jay Obrien Signed Date: 01/23/2025 10:13 ET Workstation ID: [id number] Transcribed By: Self Edit Transcribed Date: 01/23/2025 10:09 ET Narrative 01/23/2025 10:13 AM EST HISTORY: Pain x 2 weeks, no injury TECHNIQUE: 4 views of the right knee COMPARISON: None FINDINGS: No acute fracture or dislocation is seen. There is no joint effusion present. The medial and lateral joint spaces appear normal. No perihardware lucencies or periprosthetic fractures. Procedure Note Jay Obrien MD - 01/23/2025 HISTORY: Pain x 2 weeks, no injury TECHNIQUE: 4 views of the right knee COMPARISON: None FINDINGS: No acute fracture or dislocation is seen. There is no joint effusionpresent. The medial and lateral joint spaces appear normal. Noperihardware lucencies or periprosthetic fractures. IMPRESSION: No acute fracture or dislocation of the right knee. -------- FINAL REPORT -------- Dictated By: Jay Obrien Dictated Date: 01/23/2025 10:09 ET Assigned Physician: Jay Obrien Reviewed and Electronically Signed By: Jay Obrien Signed Date: 01/23/2025 10:13 ET Workstation ID: [id number] Transcribed By: Self Edit Transcribed Date: 01/23/2025 10:09 ET Ricardo RICCI IMG XR PROCEDURES Final Re sult * Chlamydia trachomatis and Neisseria gonorrhoeae molecular study (03/26/2024 3:24 PM EST) Neisseria gonorrhoeae PCR Negative Negative LAB MOLECULAR DIAGNOSTICS METHOD 03/27/2024 10:32 AM EST [facility] Chlamydia trachomatis PCR Negative Negative LAB MOLECULAR DIAGNOSTICS METHOD 03/27/2024 10:32 AM EST [facility] Swab Cervix uteri structure / Unknown Non-blood Collection / Unknown 03/26/2024 3:24 PM EST 03/26/2024 4:15 PM EST Daniela PAULA LAB MICROBIOLOGY - GENERAL OR DERABLES Final Result [facility] [address] [place] [address], [place] [phone] * Lipid panel (05/26/2023) LDL/HDL Ratio 4 0 - 4 Triglycerides 63 0 - 150 mg/dL Cholesterol 143 0 - 200 mg/dL HDL 41 >=40 mg/dL LDL Cholesterol 90 0 - 100 mg/dL Blood Venous blood specimen / Unknown Historical Provider MD LAB BLOOD ORDERABLES Sherri l Result * Depression Screening (05/12/2023) Pathologist [facility] Depression Screening Abstracted Historical Provider MD HEALTH MAINTENANCE Final Result * Pap smear (05/26/2022) 05/26/2022 Narrative HISTORICAL TESTING LAB RESULTING AGENCY - 05/30/2022 12:10 PM EDT [id number] THINPREP PAP, IMAGED: NEGATIVE FOR SQUAMOUS INTRAEPITHELIAL LESION AND MALIGNANCY . SOURAV MATOS(ASCP) (CASE ELECTRONICALLY SIGNED 05 30 2022) ADEQUACY: SATISFACTORY ENDOCERVICAL/TRANSFORMATION ZONE COMPONENT ABSENT. SOURCE: THINPREP PAP HPV IF ASCUS, CERVICAL, IMAGED CLINICAL INFORMATION: HPV IF DIAGNOSIS OF ASCUS. HORMONES, LMP 05/10/22, [Z01.419] Daniela Maya CNM LAB CYTOLOGY ORDERABLES Final Result HISTORICAL TESTING LAB RESULTING AGENCY from Last 3 Months or Most Recently Relevant to Health Maintenance Insurance [facility] MEDICARE Member Subscriber Plan / Payer (Ef fective 2022-Present) Name:ODILIA GILMORE Relation to Subscriber:Self Name:Odilia Gilmore T Payer ID:[id number] Group ID:[id number] Type:Not on file Address: [place] [address] [address] [phone] Care Teams Deflash And Wash Operator Relationship Specialty Start Date End Date Lillian Johnson MD [address] [place] [address] PCP - General Internal Medicine 01/05/21
--- NOTE | 2025-02-03 13:55 | MHC.OFFVISWM ---
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 Allergies No Known Allergies Allergy (Verified 02/03/25 13:56) Medication List - Last Reconciled 02/03/25 by Armin Baker MD albuterol sulfate 90 mcg/actuation (ProAir HFA) 2 puffs inhalation Q6H PRN cholecalciferol (vitamin D3) 25 mcg PO DAILY ferrous sulfate 324 mg PO BID hydroxyzine HCl 10 mg PO TID PRN trazodone 50 mg PO BEDTIME PRN HPI 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: Details: Start time: 1.45pm, End time: 2.36pm ?I spent 46 minutes speaking with the patient on the phone plus an additional 5 minutes reviewing and updating records for a total of 51 minutes HPI Comments Details: Previous weight loss efforts: self diets and exercise Wakes up: 6am/10am, Sleeps: 10pm Breakfast: 7am (eggs) Lunch: skips Dinner: 6pm (rice, chicken sandwich) Snacks: occ ice cream after dinner Exercise: none Beverages: Coffee: (1 cup/d with milk and sugar), Tea: none, Soda: none, Juice: (apple juice: daily), ETOH: none PFSH Medical History (Updated 02/03/25 @ 14:12 by Armin Baker MD) Morbidly obese Iron deficiency anemia Vitamin D deficiency Adjustment disorder with depressed mood Seasonal allergies JRA (juvenile rheumatoid arthritis) SONALI (obstructive sleep apnea) Asthma Kidney cysts GERD (gastroesophageal reflux disease) Renal lesion Insomnia Anxiety Surgical History H/O right knee surgery H/O left knee surgery Hx of adenoidectomy Family History (Updated 03/30/22 @ 09:55 by KELLY Tobar) Mother Diabetes Hypertension Father Polycystic kidney disease Social History (Updated 03/30/22 @ 09:55 by KELLY Tobar) Household Members Other:: Mom and brother Alcohol intake: current Patient Tobacco Use Status: Never used Tobacco Current occupational status: unemployed Telehealth Telehealth Telehealth Platform: Telephone Location of provider rendering services: practice address Location of patient: address on file Patient Identification confirmed using: Name, : Yes Telehealth method: voice only Patient verbally consented to treatment: Yes Patient verbally consented to billing insurance company: Yes Patient informed of any privacy concerns related to visit: Yes Minutes spent on Phone/Video with Pt.: 51 Assessment & Plan Assessment & Plan (1) Morbidly obese: Code(s): E66.01 - Morbid (severe) obesity due to excess calories Category: Medical Plan: 1.? Plan for lap sleeve gastrectomy. If diaphragmatic or ventral hernias are present at time of surgery, these will be repaired laparoscopically as well. I emphasized the importance of close follow-up, adherence to instructions and good communication. The surgery does not replace the need to change your lifestlyle which is the cause of the obesity problem. The surgery provides the motivation to try again to change your lifestyle, it reduces the appetite and make the transition to a better lifestyle easier and doubles the amount of weight you would lose compared to doing the lifestyle change without the surgery. You will need to be on a liquid diet with protein shakes for 2 weeks before surgery to maximize weight loss and boost your nutritional status to recover better from surgery and also for the first two weeks after surgery to let the stomach heal before we introduce other foods. After the first 2 weeks we will introduce protein bars and soft foods like scrambled eggs, cottage cheese and yogurt and after the 6th week will introduce meat, fish and cooked vegetables in small amounts. Over time you should be able to eat everything in small amounts. Side effects like nausea, vomiting, heartburn or abdominal pain are not common in the practice unless you are not following in the practice. This operation requires lifetime commitment to following in our practice and communication with me. You will much less weight and experience side effects if you don?t communicate or not following in the practice. Complications are rare and in our practice is about 1/10 of the national average. However, you can develop bleeding that may require transfusion (hasn?t happened for year in the practice), you may from complications (we did not have any deaths in the practice) and infections. Infections are usually a result of breakdown in communication or not understanding or following directions correctly. They are difficult to treat, they can happen during the first 6 weeks, they may require to be in the hospital for weeks or even months, not being able to eat by mouth and you may have drains and surgeries to try and correct the issue. Other risks and complications include possible conversion to an open procedure, leaks, small bowel obstruction, blood clots, cardiac, or pulmonary complications, as termite control servicer complications such as ulcers, insufficient weight loss and vitamin deficiencies. 1. MEAL PLAN? A) WORKING DAYS: Nutritional counseling. Start with one premade PREMIER protein (buy at [employer] or [email or web address]) shake (8oz of Premier mixed with and NOT the whole bottle) at 7am-9am, one protein bar (Fit Crunch protein bar, buy at [email or web address], or [employer]) at 10am-12pm, another premade PREMIER protein shake (8oz of Premier mixed with and NOT the whole bottle) at 1pm-3pm, another Fit Crunch protein bar at 4pm-6pm, dinner at 7pm (8 forks of protein and 8 forks of salad/vegetables) and another HALF Fit Crunch protein bar at 9pm-10pm. So you do 2 protein shakes, 2.5 protein bars and one meal per day. B) OFF DAYS: Nutritional counseling. Start with one premade PREMIER protein (buy at [employer] or [email or web address]) shake (A WHOLE BOTTLE Premier shake) at 11am-1pm, one protein bar (Fit Crunch protein bar, buy at [email or web address], or [employer]) at 2pm-4pm, dinner at 5pm (12 forks of protein and 12 forks of salad/vegetables), another premade PREMIER protein shake (A WHOLE BOTTLE Premier shake) le bottle) at 7pm-9pm, So you do 2 protein shakes, 1 protein bar and one meal per day. Meal to include lean meat (beef, fish, pork, turkey, chicken), or macedonian yogurt, or egg whites, or beans with a salad with olive oil and fruits (berries, pears, apples, kiwi). Avoid salt, breads, potatoes, rice, pasta, desserts. 3. Each shake would be drunk slowly, like coffee in a period of 2 hours. 4. Cut each bar in 4 pieces and eat each piece in 30min ?to make each bar last 2 hours. 5. I emphasized the importance of measuring accurately the food portion and measure it when serving the food in plate 6. The meal portions include 10 full-size forks of meat and 10 full-size forks of salad. You always eat the meat portion but you can replace up to 5 forks for salad/vegetables with rice, potatoes or pasta, or a fruit ?if you like. The less you do it the better weight loss will be. 7. One full-size fork is what it can be scooped on the fork without falling aside and not what can be bit with the fork. Use regular forks like those you find in a typical restaurant. 8.? Please buy the body composition scale we discussed and send me weight measurements as soon as possible and then once a week. Always include your diet and exercise plan. 9. The best choice would be to purchase a stationary bike at home that can track calories. If you get one, please start stationary bike at a resistance level of 4.0 Increase level by 1.0 every 3 min to a max level of 10.0. Stay at this level for 3 min and then return to level 4.0 and repeat same steps until 300 calories are burned. Goal is to burn 2000 calories per week on exercise 10.?It is important of avoiding and for at least 18 months postoperatively 11. Goal is to lose at least 1.5-2lbs per week 12. Goal to lose 10% of your weight before surgery, which is about 29lbs. Ultimate weight goal: 300lbs before surgery 13. Please follow the diet plan exactly without any change. If you don't like something about the plan or you feel hungry you need to communicate with me so I can help you revise the plan. You should not change the plan yourself. 14. To be scheduled for EGD to assess the stomach's anatomy. The possibility of biopsies was discussed. Patient needs to avoid use of NSAIDs and aspirin for 1 week prior to EGD. You must be on liquids only the day before your endoscopy. Risks of perforation and bleeding was discussed with the patient. This will be an outpatient procedure with IV sedation. Orders: Orders Insulin Today E66.01 - Morbid (severe) obesity due to excess calories, J45.909 - Unspecified asthma, uncomplicated, K21.9 - Gastro-esophageal reflux disease without esophagitis Hemoglobin A1c Today E66.01 - Morbid (severe) obesity due to excess calories, J45.909 - Unspecified asthma, uncomplicated, K21.9 - Gastro-esophageal reflux disease without esophagitis Complete Blood Count Auto Diff Today E66.01 - Morbid (severe) obesity due to excess calories, J45.909 - Unspecified asthma, uncomplicated, K21.9 - Gastro-esophageal reflux disease without esophagitis Vitamin B12 and Folate Today E66.01 - Morbid (severe) obesity due to excess calories, J45.909 - Unspecified asthma, uncomplicated, K21.9 - Gastro-esophageal reflux disease without esophagitis C Reactive Protein Today E66.01 - Morbid (severe) obesity due to excess calories, J45.909 - Unspecified asthma, uncomplicated, K21.9 - Gastro-esophageal reflux disease without esophagitis Vitamin B1 Today E66.01 - Morbid (severe) obesity due to excess calories, J45.909 - Unspecified asthma, uncomplicated, K21.9 - Gastro-esophageal reflux disease without esophagitis TSH reflex Free T4 Today E66.01 - Morbid (severe) obesity due to excess calories, J45.909 - Unspecified asthma, uncomplicated, K21.9 - Gastro-esophageal reflux disease without esophagitis Ferritin Today E66.01 - Morbid (severe) obesity due to excess calories, J45.909 - Unspecified asthma, uncomplicated, K21.9 - Gastro-esophageal reflux disease without esophagitis US abdomen comp w elastography Today E66.01 - Morbid (severe) obesity due to excess calories, J45.909 - Unspecified asthma, uncomplicated, K21.9 - Gastro-esophageal reflux disease without esophagitis XR chest 2V Today E66.01 - Morbid (severe) obesity due to excess calories, J45.909 - Unspecified asthma, uncomplicated, K21.9 - Gastro-esophageal reflux disease without esophagitis ECG 12 lead EKG Today E66.01 - Morbid (severe) obesity due to excess calories, J45.909 - Unspecified asthma, uncomplicated, K21.9 - Gastro-esophageal reflux disease without esophagitis H Pylori Breath Test Today E66.01 - Morbid (severe) obesity due to excess calories, J45.909 - Unspecified asthma, uncomplicated, K21.9 - Gastro-esophageal reflux disease without esophagitis Lipid Panel Today E66.01 - Morbid (severe) obesity due to excess calories, J45.909 - Unspecified asthma, uncomplicated, K21.9 - Gastro-esophageal reflux disease without esophagitis IRON PROFILE Today E66.01 - Morbid (severe) obesity due to excess calories, J45.909 - Unspecified asthma, uncomplicated, K21.9 - Gastro-esophageal reflux disease without esophagitis Comprehensive Met. Panel Today E66.01 - Morbid (severe) obesity due to excess calories, J45.909 - Unspecified asthma, uncomplicated, K21.9 - Gastro-esophageal reflux disease without esophagitis Zinc Today E66.01 - Morbid (severe) obesity due to excess calories, J45.909 - Unspecified asthma, uncomplicated, K21.9 - Gastro-esophageal reflux disease without esophagitis Vitamin A Today E66.01 - Morbid (severe) obesity due to excess calories, J45.909 - Unspecified asthma, uncomplicated, K21.9 - Gastro-esophageal reflux disease without esophagitis Vitamin D 25-OH Total Today E66.01 - Morbid (severe) obesity due to excess calories, J45.909 - Unspecified asthma, uncomplicated, K21.9 - Gastro-esophageal reflux disease without esophagitis FL upper GI w air Today E66.01 - Morbid (severe) obesity due to excess calories, J45.909 - Unspecified asthma, uncomplicated, K21.9 - Gastro-esophageal reflux disease without esophagitis Referrals Nutrition/Dietitian Referral E66.01 - Morbid (severe) obesity due to excess calories, J45.909 - Unspecified asthma, uncomplicated, K21.9 - Gastro-esophageal reflux disease without esophagitis Behavioral Health Referral E66.01 - Morbid (severe) obesity due to excess calories, J45.909 - Unspecified asthma, uncomplicated, K21.9 - Gastro-esophageal reflux disease without esophagitis
[2025-02-03 14:04] VITALS: BMI 53.1
== END 2025-02-03 14:42 | disposition home or self-care (01) ==
LOC: HO.HBS 08:09
PROVIDERS: PCP Internal Medicine; Visit Provider Surgery
DX: E66.01 Morbid (severe) obesity due to excess calories (principal); Z68.43 Body mass index [BMI] 50.0-59.9, adult
CPT/HCPCS: 99204